=== PATIENT | male | born 1955 | race Hispanic/Latino ===

== ENCOUNTER → 2024-09-28 | Outpatient (CLI) | payer OTHER ==
[~2024-09-28] MED LIST: REGADENOSON 0.4 MG/5 ML PF SYG IVP ONE
[2024-09-28] MEDS: REGADENOSON 0.4 MG/5 ML PF SYG IVP SCH (11:31)
--- NOTE | 2024-09-28 20:43 | HMCSR ---
APPROVED REPORT Height: 5 ft 11in Weight: 250 lbs TEST INDICATIONS OTHER FORMS OF DYSPNEA The imaging protocol used to acquire images was Rest Tc-99m/stress Tc-99m 1 day Consent: The procedure was explained and understood by the patient. Informerd consent was witnessed Lizandro PATIÑO RN First, low dose rest was performed then high dose stress. RESTING DATA: The resting ekg shows: NSR Rest SPECT myocardial perfusion imaging was performed in supine position minutes following the intra venous injection of 12.2 mCi of Tc-99 Sestamibi. Time of rest injection: 09:15: Date: 09/28/2024 PHARMACOLOGIC STRESS: Pharmacologic stress test was performed by injecting regadenoson 0.4 mg IV push followed by the intra venous injection of 30.8 mCi of Tc-99 Sestamibi. Time of stress injection: 10:50: Date: 09/28/2024 Heart Rate at time of stress injection: 75 bpm. The images were gated to evaluate regional wall motion and calculate left ventricular ejection fracti on. STRESS DETAILS Reason for Termination: Infusion complete Stress Symptoms: FEELING STRESSED Max HR Achieved: 85 bpm % of APMHR Achieved: 66 Max Blood Pressure: 138/72 mmHg Stress ECG: NSR Study quality was good. Lung uptake was Normal. Artifact: No artifact LEFT VENTRICLE Size: The left ventricular size is normal. Systolic Function:The left ventricular systolic function is normal. Wall Motion: No regional wall motion abnormalities noted. The left ventricular ejection fraction was calculated to be 70%.TID = 1.12. LV PERFUSION The rest and stress images show normal perfusion. RV Size/Shape Normal RV Conclusion The left ventricular ejection fraction was calculated to be 70%.TID = 1.12. The rest and stress images show normal perfusion.
== END | disposition home or self-care (01) ==
LOC: RAH 08:46
PROVIDERS: ATTEND Internal Medicine Cardiovascular Disease
DX: R06.09 Other forms of dyspnea (principal)
CPT/HCPCS: 78452; 93017; J2785; A9500 ×2